=== PATIENT | male | born 1965 | race Caucasian/White ===

== ENCOUNTER 2017-05-19 05:56 | Observation (INO) ==
--- NOTE | 2017-05-19 07:10 | PROVIDER DOCUMENTATION ---
HPI-Chest Pain - General Chief Complaint: Chest Pain Stated Complaint: CHEST PAIN Time Seen by Provider: 05/19/17 06:00 Source: patient Allergies/Adverse Reactions: Patient Allergies Allergy/AdvReac Type Severity Reaction Status Date / Time Penicillins Allergy Mild RASH Verified 05/19/17 06:35 phenylephrine HCl * Allergy RASH Verified 05/19/17 06:35 [From Contac-D Cold (PE)] pseudoephedrine HCl * Allergy RASH Verified 05/19/17 06:35 [From Sudafed] red (food color) Allergy RASH Verified 05/19/17 06:35 aspirin AdvReac Severe GI DOCTORS Verified 05/19/17 06:35 TOLD PATIENT TO NOT TAKE Home Medications: Home Medication List Medication Instructions Recorded Confirmed Last Taken Type Aspirin [Aspirin EC] 81 mg PO DAILY 05/19/17 05/19/17 Unknown History Baclofen [Baclofen] 1 tab PO PRN PRN 05/19/17 05/19/17 Unknown History Budesonide/Formoterol Fumarate 1 puff IH DAILY 05/19/17 05/19/17 Unknown History [Symbicort 160-4.5 Mcg Inhaler] Calcium Carbonate [Caltrate 600] 600 mg PO BID 05/19/17 05/19/17 Unknown History Hydrocodone/Acetaminophen 1 each PO PRN PRN 05/19/17 05/19/17 Unknown History [Hydrocodon-Acetaminoph 7.5-325] Insulin Glargine [Lantus] 50 units SQ DAILY 05/19/17 05/19/17 Unknown History LISINOpril [Prinivil] 5 mg PO DAILY 05/19/17 05/19/17 Unknown History Magnesium 2 tab PO BID 05/19/17 05/19/17 Unknown History Omeprazole [Omeprazole] 1 cap PO DAILY 05/19/17 05/19/17 Unknown History Pregabalin [Lyrica] 1 tab PO QHS 05/19/17 05/19/17 Unknown History Promethazine HCl 25 mg PO Q6HR PRN 05/19/17 05/19/17 Unknown History Propranolol HCl 40 mg PO DAILY 05/19/17 05/19/17 Unknown History Roflumilast [Daliresp] 1 tab PO DAILY 05/19/17 05/19/17 Unknown History Tamsulosin [Flomax] 0.4 mg PO DAILY 05/19/17 05/19/17 Unknown History - History of Present Illness-CP Nature of Presenting Problem: Pt began noticing CP a month ago while on riding mower. EMS called, EKG was NL, pt did not want to come to ED, so did not. He did go see pcp, who ordeered tests , but pt felt better, so did not go. 2 weeks ago, pain returned. He went to [facility], who has ordere tests. He has also been to see Dr Alfonso, and has stress test scheduled for . This am, ~0430, awakened by dull pressure CP, that rad to L arm, assoc with nausea, SOB. Pain has remained since. Location: reports: substernal Chest Pain Radiation: reports: arms Quality of Pain: reports: dull, pressure Severity in ED: moderate Onset/Duration: other (0430) Timing: still present Context/Activities at Onset: reports: sleep Modifying Factors: improves with: nothing Associated Symptoms: reports: dizziness, nausea, shortness of breath Nitro Today/Relief: no nitro taken today Prior Chest Pain/Cardiac Workup: reports: no prior cardiac workup Similar Symptoms Previously?: Yes Recently Seen Here or By Another Healthcare Provider: Yes (see above) Review of Systems - Adult - REVIEW OF SYSTEMS - ADULT Constitutional: reports: no symptoms reported Eyes: reports: no symptoms reported Ears, Nose, Mouth & Throat: reports: no symptoms reported Cardiovascular: reports: see HPI Respiratory: reports: see HPI Genitourinary: reports: see HPI Musculoskeletal: reports: no symptoms reported Integumentary: reports: no symptoms reported Neurological: reports: no symptoms reported Psychiatric: reports: no symptoms reported Endocrine: reports: no symptoms reported Hematologic/Lymphatic: reports: no symptoms reported Allergic/Immunologic: reports: no symptoms reported Past History - Adult - PAST MEDICAL HISTORY-ADULT Review of Records: reports: Medications Reviewed Major Childhood Illnesses: reports: denies history Cardiovascular: reports: HTN Respiratory: reports: COPD, sleep apnea Gastrointestinal: reports: GERD, ulcer, other (hiatal hernia) Genitourinary: reports: denies history Musculoskeletal: reports: denies history Neurological: reports: denies history Endocrine/Immune: reports: Diabetes Other Conditions: reports: denies history - PRIOR SURGERIES/PROCEDURES Surgical/Procedure History: reports: appendectomy, cholecystectomy, hernia repair (hital), orthopedic (extremity), back/neck, other (ulcer surgery) - IMMUNIZATION STATUS Childhood Immunizations: See Nurse Assessment Flu Vaccine: See Nurse Assessment - FAMILY HISTORY Family History: reviewed, not pertinent - SOCIAL HISTORY Smoking: chew Physical Exam-General - PHYSICAL EXAM-ADULT Initial Vital Signs Reviewed: Yes - CONSTITUTIONAL General Appearance: appears well, alert, no apparent distress - EYES Eyes: PERRL/EOMI, pink conjunctivae - HEAD, EARS, NOSE, MOUTH & THROAT HENMT: normocephalic/atraumatic, moist mucous membranes, normal ENT inspection, pharynx normal - NECK Neck: non-tender, full range of motion, supple, normal inspection - RESPIRATORY Respiratory: lungs clear, normal breath sounds, no pleuratic chest pain, no respiratory distress, no accessory muscle use - CARDIOVASCULAR Cardiovascular: regular rate, rhythm, no gallop, no murmur - GASTROINTESTINAL (ABDOMEN) Abdominal Exam: non tender, soft - MUSCULOSKELETAL Back Exam: normal inspection, no CVA tenderness, no vertebral tenderness Extremity: normal range of motion, non-tender, normal inspection, no pedal edema - SKIN Integumentary: normal color, normal turgor, warm/dry - NEUROLOGIC Neurologic: client care representative II-XII nml as tested, grossly normal, no motor/sensory deficits - PSYCHIATRIC Psych/Mental Status: normal mood/affect, normal thought content, normal thought process, oriented x 3 Progress - PLAN OF CARE/RESULTS Progress/Plan/Lab Results: Vital Signs - 8 hr 05/19/17 06:02 05/19/17 07:08 05/19/17 07:42 Temperature 97.8 F Pulse Rate 77 76 77 Respiratory Rate 18 22 18 Blood Pressure 165/102 160/97 148/87 O2 Sat by Pulse Oximetry 99 98 98 Laboratory Results - last 24 hr 05/19/17 05/19/17 05/19/17 07:19 07:19 07:19 WBC 7.56 RBC 5.17 Hgb 16.0 Hct 46.1 MCV 89.2 MCH 30.9 MCHC 34.7 RDW Std Deviation 12.9 Plt Count 246 MPV 12.3 H Immature Gran % (Auto) 0.3 Neut % (Auto) 55.0 Lymph % (Auto) 32.4 [place] % (Auto) 10.4 H Eos % (Auto) 1.5 Baso % (Auto) 0.4 Immature Gran # (Auto) 0.02 Neut # (Auto) 4.16 Lymph # (Auto) 2.45 [place] # (Auto) 0.79 H Eos # (Auto) 0.11 Baso # (Auto) 0.03 PT INR PTT (Actin FS) D-Dimer 0.17 Sodium 143 Potassium 4.4 Chloride 102 Carbon Dioxide 27 Anion Gap 14 BUN 11 Creatinine 0.9 Estimated GFR/1.73 m2 > 60 BUN/Creatinine Ratio 12 Glucose 170 H Calculated Osmolality 288 Calcium 9.1 Magnesium 1.7 Total Bilirubin 0.65 AST 18 ALT 17 Alkaline Phosphatase 85 Creatine Kinase 66 Troponin T [id number] Pept Total Protein 6.5 Albumin 4.1 Globulin 2.4 Albumin/Globulin Ratio 1.7 05/19/17 05/19/17 05/19/17 07:19 07:19 07:19 WBC RBC Hgb Hct MCV MCH MCHC RDW Std Deviation Plt Count MPV Immature Gran % (Auto) Neut % (Auto) Lymph % (Auto) [place] % (Auto) Eos % (Auto) Baso % (Auto) Immature Gran # (Auto) Neut # (Auto) Lymph # (Auto) [place] # (Auto) Eos # (Auto) Baso # (Auto) PT 10.1 INR 0.96 PTT (Actin FS) 25.2 D-Dimer Sodium Potassium Chloride Carbon Dioxide Anion Gap BUN Creatinine Estimated GFR/1.73 m2 BUN/Creatinine Ratio Glucose Calculated Osmolality Calcium Magnesium Total Bilirubin AST ALT Alkaline Phosphatase Creatine Kinase Troponin T < 0.010 Ecd-H-Fyilpjglejb Pept 70 Total Protein Albumin Globulin Albumin/Globulin Ratio Orders Category Date Time Status Cardiac Monitoring DIRECTED Care 05/19/17 06:29 Active Oxygen Therapy- ED Nursing DIRECTED Care 05/19/17 06:29 Active Saline Loc NOW Care 05/19/17 06:29 Active CHEST-2 VIEWS [RAD] Stat Exams 05/19/17 06:22 Taken CBC WITH ELECTRONIC DIFF [HEME] Stat Lab 05/19/17 07:19 Completed CK PROFILE [SP CHEM] Stat Lab 05/19/17 07:19 Completed COMPREHENSIVE METABOLIC PANEL [CHEM] Stat Lab 05/19/17 07:19 Completed D-DIMER [CHEM] Stat Lab 05/19/17 07:19 Completed MAGNESIUM [CHEM] Stat Lab 05/19/17 07:19 Completed PRO B-NATRIURETIC PEPTIDE Stat Lab 05/19/17 07:19 Completed PROTIME WITH INR [COAG] Stat Lab 05/19/17 07:19 Completed PTT [COAG] Stat Lab 05/19/17 07:19 Completed TROPONIN T Stat Lab 05/19/17 07:19 Completed Aspirin Med 05/19/17 07:25 Discontinued 325 mg PO NOW ONE Nitroglycerin Med 05/19/17 07:25 Discontinued 1 inch TOP NOW ONE Ondansetron [Zofran] Med 05/19/17 07:29 Discontinued 8 mg .ROUTE .STK-MED ONE Ondansetron [Zofran] Med 05/19/17 07:41 Discontinued 8 mg IV NOW ONE Pulse Oximetry Stat Oth 05/19/17 06:22 Completed EKG [EKG] Stat Ther 05/19/17 06:06 Ordered Result Diagrams: 05/19/17 07:19 05/19/17 07:19 - EKG 1 Time of EKG reading by physician:: 06:10 EKG Read and Signed by:: Sylvain Reddy EKG Interpretation (*Must complete 3 of following elements*): Normal Rate: 76 Rhythm: NSR [place]: normal QRS: normal - XRAY 1 XRAY Study: Chest Impression: Normal - CONSULTS/PCP/HOSPITALIST Notification #1 *Consult/PCP/Hospitalist*: [place] Time Discussed: 08:13 Consult Disposition: Will see in ED, Admit Departure - Departure Date of Disposition Decision: 05/19/17 Time of Disposition Decision: 07:26 DIAGNOSIS: Chest pain at rest, Non-insulin dependent type 2 diabetes mellitus Disposition: ADMITTED INPATIENT 09 Certified Medical Emergency: Emergent Condition: Good Referrals and Follow-Ups: Jaimee Win MD [Primary Care Provider] - - Critical Care Note This patient required my direct & personal management of CC.: No
[2017-05-19] MEDS ORDERED: ASPIRIN PO ONE (07:25)
[2017-05-19] MEDS ORDERED: NITROGLYCERIN TOP ONE (07:25)
[2017-05-19] MEDS ORDERED: ZOFRAN ONE (07:29)
[2017-05-19 07:31] LABS: MANUAL DIFF NEEDED? NO
[2017-05-19 07:35] LABS: BASO% 0.4 % (0.0-0.8); EOS# 0.11 X1000 (0.0-0.7); EOS% 1.5 % (0.0-10.0); HEMATOCRIT 46.1 % (42.0-52.0); IMM GRAN# 0.02 X1000 (0.0-0.04); IMM GRAN% 0.3 % (0.0-0.5); LYMPH# 2.45 X1000 (1.2-3.4); LYMPH% 32.4 % (20.5-51.1); MCH 30.9 PG (27-31); MCHC 34.7 g/dL (33-37); MCV 89.2 FL (81-99); MONO# 0.79 X1000 (0.11-0.59); MONO% 10.4 % (1.7-9.3); MPV 12.3 FL (7.4-10.4); PLT 246 X1000 (130-400); RBC 5.17 XMIL (4.7-6.1)
[2017-05-19] MEDS ORDERED: ZOFRAN IV ONE (07:41)
[2017-05-19 07:43] LABS: INR 0.96; PROTIME 10.1 Seconds (9.2-11.7); PTT 25.2 Seconds (22.0-36.0)
[2017-05-19 07:50] LABS: AGAP 14; ALBUMIN 4.1 g/dL (3.5-5.0); ALKALINE PHOSPHATASE 85 U/L (32-122); BUN 11 mg/dL (8-22); CALCIUM 9.1 mg/dL (8.8-10.2); CHLORIDE 102 mmol/L (98-107); CK PROFILE 66 U/L (24-204); COSMO 288; GOT 18 U/L (10-34); GPT 17 U/L (10-44); MAGNESIUM 1.7 mg/dL (1.5-2.7); POTASSIUM 4.4 mmol/L (3.5-5.1); SODIUM 143 mmol/L (136-145); TCO2 27 mmol/L (25-35); TOTAL BILIRUBIN 0.65 mg/dL (0.20-1.00); TOTAL PROTEIN 6.5 g/dL (6.3-8.3)
[2017-05-19 09:48] LABS: URINE CULTURE NEEDED? NO; URINE MICRO REVIEW NEEDED? NO; URINE SOURCE CLEAN CATCH
[2017-05-19] MEDS ORDERED: TYLENOL PO PRN (09:54)
[2017-05-19] MEDS ORDERED: SYMBICORT 160/4.5 MICROGM INHALER INH SCH (09:54)
[2017-05-19] MEDS ORDERED: ZOFRAN IV PRN (09:54)
[2017-05-19] MEDS ORDERED: PHENERGAN PO PRN (09:54)
[2017-05-19] MEDS ORDERED: NORCO-7.5 PO PRN (09:54)
[2017-05-19] MEDS ORDERED: LIORESAL PO PRN (09:54)
[2017-05-19] MEDS ORDERED: DALIRESP PO SCH (09:54)
[2017-05-19 10:02] LABS: BILIRUBIN URINE NEGATIVE (NEGATIVE); BLOOD URINE NEGATIVE (NEGATIVE); COLOR YELLOW; GLUCOSE URINE 70 mg/dL (NEGATIVE); LEUKOCYTES URINE NEGATIVE (NEGATIVE); NITRITE URINE NEGATIVE (NEGATIVE); PH URINE 5.5; PROTEIN URINE TRACE mg/dL (NEGATIVE); SP GRAVITY URINE 1.031; TURBIDITY URINE CLEAR (CLEAR); UROBILINOGEN URINE 2 mg/dL (NORMAL)
[2017-05-19 10:05] LABS: UR EPITHELIAL CELLS <10 /HPF (<10); URINE BACTERIA NEGATIVE /HPF; URINE RBC <10 /HPF (<10); URINE WBC <10 /HPF (<10)
[2017-05-19] MEDS: ASPIRIN EC PO SCH (10:49)
[2017-05-19] MEDS: PRINIVIL PO SCH (10:50)
[2017-05-19] MEDS: FLOMAX PO SCH (10:51)
[2017-05-19] MEDS: LOVENOX SUBQ SCH (10:51)
[2017-05-19] MEDS: INDERAL PO SCH (10:51)
[2017-05-19] MEDS: MAG-OX PO SCH ×2 (10:52→21:16)
[2017-05-19] MEDS: CALTRATE 600 PO SCH ×2 (10:52→21:15)
--- NOTE | 2017-05-19 12:00 | Diag Imaging Result Doc PS360 ---
EXAM: CHEST-2 VIEWS INDICATION: chest pain TECHNIQUE: 2 views COMPARISON: 03/26/2017 FINDINGS: The lungs are grossly clear. There is no discrete pleural fluid collection or pneumothorax. The cardiomediastinal silhouette and central vasculature are grossly unremarkable. IMPRESSION: No evidence of acute pathology by plain radiograph. Electronically signed by Roe Vallejo 05/19/2017 11:58 AM
--- NOTE | 2017-05-19 12:23 | HISTORY AND PHYSICAL ---
PRIMARY CARE PHYSICIAN: Dr. Win. JANITOR CARETAKER: Dr. Anderson. CHIEF COMPLAINTS: Chest pain. HISTORY OF PRESENT ILLNESS: Mr. Carlson is a 51-year-old male with a history of chronic pain, COPD, diabetes mellitus, and hypertension, who presents with acute onset of chest pain that began this morning at around 4:30. This pain woke him up out of sleep. He describes a midsternal chest pain radiating down his left arm associated with nausea but no vomiting and mild shortness of breath and diaphoresis. Mr. Carlson has been having chest pain over the past few weeks and months and is actually scheduled for nuclear stress testing by Dr. Anderson this Saturday. He said the initial pain only lasted for about a minute but he did have some heavy sensation in his chest for around 30 minutes. Ambulance was called and the patient was brought to the ER. In the ER he had labs and diagnostics done. EKG showed normal sinus rhythm without acute ST abnormalities and his blood work is unremarkable. Given the history and the fact that he has been having chest pain over the past few weeks and months, we are going to admit him for observation and have cardiology evaluate him. PAST MEDICAL HISTORY: 1. COPD. 2. Diabetes mellitus. 3. Hypertension. 4. Diabetic neuropathy. 5. Chronic pain. 6. GERD. 7. Hiatal hernia. 8. BPH. PAST SURGICAL HISTORY: Hiatal hernia repair x3, cholecystectomy, appendectomy, lower back surgery x3, cervical spine surgery x4, right ear surgery x4, right carpal tunnel release , right wrist surgery, hemorrhoidectomy. SOCIAL HISTORY: The patient denies any tobacco, alcohol, or drug use. He is . is at the bedside. He is disabled. He has 1 child. FAMILY HISTORY: Mother at age 63 from coronary disease and congestive heart failure, initially diagnosed in her 40s. Father at 71 with a massive AL. He also has a history of atrial fibrillation. REVIEW OF SYSTEMS: Fourteen-point review of systems was obtained and found to be negative with the exception of the HPI. ALLERGIES: Penicillin, phenylephrine, Sudafed, red food color, and aspirin ( Please note, the patient is taking aspirin on a daily basis. Apparently he has a history of GERD and has strong gastric reaction to aspirin but no true allergy). HOME MEDICATIONS: Aspirin 81 mg daily, baclofen 10 mg as needed for pain, budesonide formoterol inhaler daily, calcium carbonate 600 mg b.i.d., [place] as needed for pain, Lantus 50 units subcutaneously daily, Prinivil 5 mg daily, magnesium 400 mg b.i.d., omeprazole 40 mg daily, Lyrica 300 mg p.o. at bedtime, promethazine 25 mg p.o. q.6 hours as needed for nausea, propranolol 40 mg daily, Daliresp 500 mcg p.o. daily, Flomax 0.4 mg daily. PHYSICAL EXAMINATION: VITAL SIGNS: Blood pressure is 138/66, heart rate 69, respiratory rate 18, O2 saturation 97% on room air, temperature is 97.8 degrees. GENERAL: This is a well-developed, well-nourished, male, lying in hospital bed. No acute distress. NEUROLOGIC: The patient is awake, alert, oriented. He follows commands without focal deficits. HEENT: Head is atraumatic and normocephalic. Pupils equal, round, reactive to light. Oral mucosa moist. Trachea midline. No JVD or carotid bruits. CHEST: Clear to auscultation bilaterally. CV: Regular rate and rhythm. S1, S2 is noted. No murmurs. GI: Soft, nondistended, nontender. Bowel sounds positive. EXTREMITIES: Trace edema. No clubbing or cyanosis. Pulses 2+ bilaterally. DIAGNOSTIC DATA: WBC 7.56, hemoglobin 16, hematocrit 46.1, platelet count 246, 000. INR 0.96. D- dimer 0.17. Sodium 143, potassium 4.4, chloride 102, CO2 27, anion gap 14, BUN 11, creatinine 0.9, glucose 170, calcium 9.1, magnesium 1.7, bilirubin 0.65, AST 18, ALT 17, alkaline phosphatase 85. CK and troponin negative. Albumin 4.1. ASSESSMENT AND PLAN: 1. Chest pain: Symptoms are suspicious for unstable angina. His enzymes and EKG are negative thus far but we are going to admit him for observation status and consult Dr. Anderson. We will keep him on telemetry, trend his enzymes, and continue with aspirin and nitrates. We will keep him NPO until seen by cardiology. 2. Diabetes mellitus: We will check a hemoglobin A1c. Add pattern sugars and sliding scale insulin and continue his home insulin. 3. Hypertension: Chronic and stable. Continue home medications. 4. Chronic obstructive pulmonary disease: Chronic and stable. Continue home medications. 5. Gastroesophageal reflux disease/hiatal hernia: Will continue his omeprazole. Apparently he had an EGD last month by Dr. Styles which showed a hiatal hernia but nothing acute, per patient report. 6. Benign prostatic hypertrophy: Continue his Flomax. 7. Deep vein thrombosis prophylaxis will be provided with Lovenox. Further recommendations to follow. Dictated by PETE Diamond for Lamar Walker MD cc: PETE Diamond MD Bhavna Gowda, MD [facility] D[facility] Denney, MD [facility]
[2017-05-19] MEDS: LANTUS SUBQ SCH (13:27)
--- NOTE | 2017-05-19 14:18 | CONSULTATION ---
DATE OF CONSULTATION: 05/19/2017 IMPRESSION: 1. Recurrent chest discomfort suspicious for unstable angina in setting of multiple risk factors for coronary disease. 2. Diabetes mellitus requiring insulin for control. 3. Hypertension. 4. Positive family history for early coronary disease. 5. Previous coronary angiography 6 years ago reportedly negative. RECOMMENDATIONS: 1. Given clinical presentation and coronary risk profile, it would appear most prudent to pursue reevaluation with cardiac catheterization and selective coronary angiography. The rationale for this approach was thoroughly discussed with the patient including potential hazards of procedure. He wished to proceed. 2. Check lipid profile. 3. Continue aspirin daily given coronary risk profile. 4. Given diabetes mellitus and LDL level, favor initiation of statin therapy. HISTORY: This 51-year-old white male with past history of diabetes mellitus requiring insulin for control for approximately 15 years, hypertension, gastroesophageal reflux disease, Childs esophagus, and family history of early coronary atherosclerosis was admitted through the emergency room for evaluation of chest discomfort. He relates that around 4:30 a.m. this morning he awoke with chest tightness and shortness of breath. There was some dull chest discomfort. There was also some left arm radiation. Discomfort occurred intermittently over about 30 minutes and would last a few minutes at a time and then resolve. He felt hot but not sweaty. His awoke after about 30 minutes of intermittent discomfort and brought him to the emergency room by car. His chest symptoms have resolved. He recalls previous chest discomfort for several years of somewhat different nature. Some of his chest symptoms have been related to gastroesophageal reflux and hiatal hernia. He has had 3 prior surgeries for hiatal hernia and also has Childs esophagus. He is a nonsmoker. PAST MEDICAL HISTORY: 1. Diabetes mellitus requiring insulin for control for approximately 15 years. 2. Hypertension. 3. Reportedly does not have high cholesterol. 4. Neuropathy related to diabetes mellitus. 5. Gastroesophageal reflux/hiatal hernia. Patient is status post 3 previous surgeries for hiatal hernia. 6. Childs esophagus. PAST SURGICAL HISTORY: Includes 3 surgical procedures for hiatal hernia, 4 low back surgeries, 4 cervical spine surgeries, cholecystectomy, appendectomy, 3 prior right ear surgeries, right carpal tunnel release, right wrist ganglion cyst removal, unspecified right knee surgery, and hemorrhoidectomy. MEDICATIONS: Prior to admission as listed. SOCIAL HISTORY: He is . He has never smoked. He does not use alcohol. FAMILY HISTORY: Positive for early coronary disease. His mother had manifestations of coronary disease clinically in her mid 40s. REVIEW OF SYSTEMS: Pulmonary: Noncontributory beyond history of present illness. Gastrointestinal: Noncontributory beyond history of present illness. Constitutional: Noncontributory beyond history present illness. Remainder review of systems noncontributory beyond history of present illness with 14 total systems reviewed. PHYSICAL EXAM: This is an overweight middle-aged male in no distress.Vital Signs: As recorded are stable. HEENT: Extraocular movements appear intact. Mucous membranes moist. Neck: Supple without JV distention. There are no carotid bruits. Chest: Clear to auscultation. Cardiac Exam: Reveals a regular rate and rhythm without appreciable murmur or gallop. Abdomen: Soft, nontender. Bowel sounds normal. Extremities: Without edema. Neurologic Exam: Reveals him to be alert, fully oriented. Speech is fluent. Moves all 4 extremities equally well. Skin: Warm and dry. Psychiatric: Reveals mood to be appropriate. DATA: ECG shows sinus rhythm, is within normal limits. Initial troponin less than 0.01. Followup troponin less than 0.01. LDL cholesterol 139, HDL 39, total cholesterol 180, triglycerides 91. cc: Renny Anderson MD
[2017-05-19] MEDS: NORCO-7.5 PO PRN ×2 (14:25→21:24)
[2017-05-19] MEDS ORDERED: LIPITOR PO SCH (21:00)
[2017-05-19] MEDS ORDERED: LYRICA PO SCH (21:00)
[2017-05-20] MEDS: NORCO-7.5 PO PRN (04:41)
[2017-05-20] MEDS: PRILOSEC PO SCH ×2 (04:41→06:55)
[2017-05-20] MEDS ORDERED: INSULIN PEN NEEDLES ONE (06:10)
[2017-05-20 06:30] LABS: HEMATOCRIT 45.1 % (42.0-52.0); HEMOGLOBIN 14.9 g/dL (14.0-18.0); MCH 30.8 PG (27-31); MCV 93.4 FL (81-99); MPV 12.6 FL (7.4-10.4); RBC 4.83 XMIL (4.7-6.1)
[2017-05-20 06:42] LABS: AGAP 11; BUN 13 mg/dL (8-22); CALCIUM 9.1 mg/dL (8.8-10.2); CHLORIDE 99 mmol/L (98-107); COSMO 281; POTASSIUM 4.4 mmol/L (3.5-5.1); SODIUM 139 mmol/L (136-145); TCO2 29 mmol/L (25-35)
[2017-05-20 06:45] LABS: HEMOGLOBIN A1C 7.5 % (4.8-6.0)
[2017-05-20] MEDS: LOVENOX SUBQ SCH ×2 (08:33→10:57)
[2017-05-20] MEDS: PRINIVIL PO SCH (08:34)
[2017-05-20] MEDS: INDERAL PO SCH (08:34)
[2017-05-20] MEDS: CALTRATE 600 PO SCH (08:45)
[2017-05-20] MEDS: ASPIRIN EC PO SCH (08:45)
[2017-05-20] MEDS: MAG-OX PO SCH (08:45)
[2017-05-20] MEDS: FLOMAX PO SCH (08:45)
[2017-05-20] MEDS: LANTUS SUBQ SCH (08:46)
[2017-05-20] MEDS ORDERED: KLOR-CON PO PRN ×3 (11:06)
[2017-05-20] MEDS ORDERED: TYLENOL PO PRN (11:06)
[2017-05-20] MEDS ORDERED: NITROGLYCERIN SL PRN (11:06)
[2017-05-20] MEDS ORDERED: RESTORIL PO PRN (11:06)
[2017-05-20] MEDS ORDERED: MILK OF MAGNESIA PO PRN (11:06)
[2017-05-20] MEDS ORDERED: CEPACOL SORE THROAT LOZENGE MT PRN (11:06)
[2017-05-20] MEDS ORDERED: XANAX PO PRN (11:06)
[2017-05-20] MEDS ORDERED: MAGNESIUM SULFATE 3 GM in NS 100 ML IV PRN (11:06)
[2017-05-20] MEDS ORDERED: DULCOLAX PR PRN (11:06)
[2017-05-20] MEDS ORDERED: PERCOCET-5 PO PRN (11:06)
[2017-05-20] MEDS ORDERED: ZOFRAN IV PRN (11:06)
[2017-05-20] MEDS ORDERED: MAGNESIUM SULFATE 2 GM in STERILE WATER INJ. 50 ML IV PRN ×4 (11:06)
[2017-05-20] MEDS ORDERED: HEPARIN 1000 UNITS/NS 2,000 UNIT/1,000 ML IV.SOLN ONE (11:17)
[2017-05-20] MEDS ORDERED: VERSED ONE (12:46)
[2017-05-20] MEDS ORDERED: NS 1,000 ML ONE (12:46)
[2017-05-20] MEDS ORDERED: DEMEROL ONE (12:46)
[2017-05-20] MEDS ORDERED: ANESTHESIA PB SET 88 IN 5742 ONE (12:46)
--- NOTE | 2017-05-20 13:29 | PROGRESS NOTE ---
DATE: 05/20/2017 SUBJECTIVE: The patient is currently awaiting a left heart catheterization that is scheduled for today. No acute events noted overnight. OBJECTIVE: Vital Signs: Temperature 97.6 degrees, blood pressure 107/75, heart rate 57, respirations 18, O2 saturations 99% on room air. General: This is an elderly male, lying in bed, in no acute distress. HEENT: Head normocephalic; atraumatic. Heart: S1, S2 normal. Regular rate and rhythm. Lungs: Clear to auscultation bilaterally. No wheezes, no rales. No rhonchi. Abdomen: Positive bowel sounds. Soft, nontender, nondistended. Extremities: No edema. No cyanosis. No calf tenderness. Neurologic: The patient is alert and oriented x3. No focal neurologic deficits noted. LABORATORY DATA: Sodium 139, potassium 4.4, chloride 99, CO2 28, BUN 13, creatinine 1.2, glucose 164, A1c 7.5. LDL 139, total cholesterol 180. ASSESSMENT/PLAN: 1. Recurrent chest pain. The patient is scheduled for a left heart catheterization today. We will await further recommendations from the dermatology sales representative. 2. Dyslipidemia. The patient's LDL was not at goal. Continue on Lipitor. 3. Diabetes mellitus type 2. Continue on Lantus plus sliding scale insulin. 4. Deep vein thrombosis prophylaxis. Continue on Lovenox. cc: Lamar Walker MD
[2017-05-20 13:50] VITALS: BP 132/97
--- NOTE | 2017-05-20 14:01 | CARDIAC CATH REPORT ---
DATE: 05/20/2017 REFERRING PHYSICIAN: Hospitalist Jay Jay and Dr. Anderson HISTORY OF PRESENT ILLNESS: This is a 51-year-old male with chest pain, suspected to be angina pectoris. The patient has multiple risk factors for coronary artery disease. DESCRIPTION OF PROCEDURE: The patient came into the cardiac slab inspector after informed consent was obtained. The right groin was prepped and draped in sterile fashion and anesthetized with lidocaine 1%. He received 2 doses of Demerol 25 mg and Versed at 2 doses and 1 mg each one. A 6-Telugu sheath was inserted into the right femoral artery by following modified Seldinger technique. Cardiac catheterization was performed with 6-Telugu Sergio catheters, left and right. Then using a right Sergio catheter, the left ventricle was opacified in 60 degree [place] projection and 30 degree MORENO projection by hand injection. At the end of the procedure, all of the catheters were removed, the sheath was flushed, right femoral artery opacified, and then Angio-Seal device was deployed successfully. Good hemostasis was accomplished. The patient tolerated the procedure well without complication. SUMMARY OF HEMODYNAMIC FINDINGS: Central aortic pressure is 143/88. Left ventricular pressure is 152/15, post LV gram 145/20. Final central aortic pressure was 141/80. SUMMARY OF ANGIOGRAPHIC FINDINGS: 1. Left main coronary artery: The left main coronary artery is anatomically normal and divides into LAD and circumflex. 2. Left anterior descending coronary artery: This vessel appears to have small caliber, however does not show any evidence of any obstruction. It gives rise to 2 diagonal branches which are small in caliber. 3. Circumflex coronary artery: The circumflex coronary artery gives rise to 2 tiny lateral vessels and then gives rise to a moderate size marginal branch and a terminal AV branch which in turn gives rise to the sinus sandra branch. The circumflex system is free of any obstruction. 4. Right coronary artery: The right coronary artery is a dominant vessel, caliber of about 2.7 mm. This vessel gives rise to acute marginal branches and posterior descending branch and posterolateral branch. Right coronary artery is free of any obstruction. LEFT VENTRICULOGRAM: Left ventriculogram in 30 degree [place]ENO projection and 60 degree [place] projection reveals normal left ventricular contractility. No wall motion abnormality. No mitral regurgitation. OPACIFICATION OF RIGHT FEMORAL ARTERY: Right femoral artery is normal. Angio-Seal device deployed successfully. CONCLUSIONS: 1. Normal hemodynamics with borderline hypertension. 2. Normal coronary arteries with a dominant right system. 3. Normal left ventricular systolic function. 4. No mitral regurgitation. No aortic stenosis. 5. Unremarkable right femoral artery with successful deployment of Angio-Seal device. RECOMMENDATIONS: The patient is to be treated for noncardiac chest pain. He will follow up with his regular physicians. cc: Yair Luogn MD
--- NOTE | 2017-05-20 14:26 | PROGRESS NOTE ---
DATE: 05/20/2017 SUBJECTIVE: Patient has continued with episodic chest discomfort. OBJECTIVE: Vital signs: Blood pressure 107/75, heart rate 57 and regular, oxygen saturation 99% on room air. Cardiac: Exam reveals a regular rate and rhythm without appreciable murmur or gallop. There is no evidence of edema. DIAGNOSTIC STUDIES: Coronary angiography just completed demonstrates no significant coronary obstructive lesions and normal left ventricular systolic function. IMPRESSIONS: 1. Episodic chest discomfort, likely noncardiac in origin and more likely related to his long- standing gastroesophageal reflux issues. 2. Diabetes mellitus. 3. Hypertension. RECOMMENDATIONS: 1. Patient is clinically stable from a cardiovascular standpoint, to be able to go home once his bedrest post cardiac catheterization study is complete, provided he has no postprocedural issues. 2. Would add Carafate and Pepcid to current regimen of omeprazole. 3. 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 cc: Renny Anderson MD
[2017-05-20] MEDS ORDERED: CARAFATE PO SCH (16:00)
[2017-05-20] MEDS ORDERED: PEPCID PO SCH (21:00)
--- NOTE | 2017-06-03 20:26 | DISCHARGE SUMMARY ---
ADMISSION DATE: 05/19/2017 DISCHARGE DATE: 05/20/2017 FINAL DISCHARGE DIAGNOSES: 1. Chest pain. 2. Chronic obstructive pulmonary disease. 3. Diabetes mellitus type 2. 4. Hypertension. 5. Gastroesophageal reflux disease. 6. Benign prostatic hypertrophy. CONSULTATIONS REQUESTED DURING THIS HOSPITAL STAY: Cardiology consultation with Dr. Anderson. PROCEDURES PERFORMED DURING THIS HOSPITAL STAY: Left heart catheterization performed 05/20/2017 that was noted to be normal. HOSPITAL COURSE: Mr. Payne is a 51-year-old male with a history of multiple medical problems who initially presented to the ER with chest pain. Serial cardiac enzymes were ordered and the patient was admitted to the Hospitalist Service. Cardiology was consulted and it was decided that the patient would benefit from a left heart catheterization. Left heart catheterization was performed on 05/20/2017 and was noted to be unremarkable. The patient was eventually cleared for discharge home on 05/20/2017. DISCHARGE MEDICATIONS: 1. Protonix 40 mg p.o. daily. 2. Carafate 1 g p.o. 4 times a day. 3. Lipitor 20 mg p.o. at bedtime. 4. Lantus 50 units subcutaneous daily. 5. Atenolol 40 mg p.o. daily. 6. Baclofen 1 tab oral every 8 hours p.r.n. 7. 0.4 mg p.o. daily. 8. Caltrate 600 mg p.o. twice a day. 9. Lyrica 1 tab oral at bedtime. 10. Omeprazole 40 mg p.o. daily. 11. Lisinopril 5 mg p.o. daily. 12. Coffey 7.5/325, 1 tab oral every 4 p.r.n. for pain. 13. Symbicort 1 puff inhaled daily. 14. Aspirin 81 mg p.o. daily. DISCHARGE DIET: 1800 ADA diet. ACTIVITY: As tolerated. FOLLOWUP INSTRUCTIONS: The patient has been advised to follow up with his primary care physician in 1 week. cc: Lamar Walker MD
== END 2017-05-20 19:10 | disposition home or self-care (01) ==
LOC: ED 05:56 → 4N 05:56 → 3S 05-20 12:59
PROVIDERS: ATTEND Internal Medicine